=== PATIENT | female | born 1950 | race African-American/Black ===

== ENCOUNTER 2025-01-28 23:55 | Emergency (ER) | payer MEDICARE ==
[2025-01-29] MEDS ORDERED: hydrALAZINE 20 MG/ML VIAL ONE (00:22)
[2025-01-29 00:53] LABS: Anion Gap 16 mmol/L (10-20); BUN (Urea Nitrogen) 20 mg/dL (9.8-20.1); Calc. Creatinine Clearance 0 mL/min (70-130); Calcium 9.3 mg/dL (7.8-10.44); Carbon Dioxide 29 mmol/L (23-31); Chloride 100 mmol/L (98-107); Estimated GFR 62; Potassium 3.3 mmol/L (3.5-5.1); Sodium 142 mmol/L (136-145)
[2025-01-29 01:01] LABS: Troponin I 0.013 ng/mL (< 0.028)
[2025-01-29 01:03] LABS: Glucose 423 mg/dL (83-110)
[2025-01-29 01:10] LABS: Hematocrit 44.9 % (34.9-44.5); Hemoglobin 14.1 g/dL (12.0-15.5); Mean Corpuscular HGB CONC 31.4 g/dL (32.0-36.0); Mean Corpuscular Hemoglobin 26.1 pg (27.0-33.0); Mean Corpuscular Volume 83.1 fL (81.6-98.3); Mean Platelet Volume 11.6 fL (7.4-10.4); Platelet Count 136 10x3/uL (150-450); RBC Distribution Width 16.6 % (11.5-14.5); White Blood Cell (WBC) Count 7.39 10x3/uL (3.5-10.5)
[2025-01-29 01:11] LABS: Band 7 % (5-11); Lymphocytes 10 % (21-51); Monocytes 4 % (0-10); Neutrophil 79 % (42-75)
[2025-01-29 01:12] LABS: MDiff Complete? YES; Platelet Adequacy Comment Appears Decreased; RBC Morphology Within Normal Limits
== END 2025-01-29 02:28 | disposition home or self-care (01) ==
LOC: CSHERS 23:55
DX: I16.1 Hypertensive emergency (principal); E11.65 Type 2 diabetes mellitus with hyperglycemia; E78.5 Hyperlipidemia, unspecified; Z79.84 Long term (current) use of oral hypoglycemic drugs
CPT/HCPCS: 80048; 83880; 84484; 85025; 93005; 96374; 99284; J0360